=== PATIENT | male | born 1950 | race Caucasian/White ===

== ENCOUNTER → 2018-04-15 | Outpatient (CLI) | payer OTHER ==
[~2018-04-15] MED LIST: ATOR40TA78 PO; GABA800T2 PO; IBUP200C8 PO; MELO15TA24 PO; OXYC10TA6 PO; OXYC1TAB7 PO; PARO30TA3 PO; PARO40TA3 PO; PRAV40TA2 PO; TAMS0.4C2 PO
== END ==
LOC: STAR 08:31
PROVIDERS: ATTEND Surgery
DX: Z02.9 Encounter for administrative examinations, unspecified (principal)

== ENCOUNTER 2018-04-22 09:49 | Day surgery (SDC) | payer OTHER ==
[~2018-04-22] VITALS: Ht 177.8 cm; Wt 91.7 kg
[~2018-04-22 09:49] MED LIST changes: +BUPIVACAINE/PF 0.5% ONE; +BUPIVACAINE/PF-EPI 0.5% 1:200K ONE
[2018-04-22] MEDS ORDERED: LACTATED RINGERS 1,000 ML IV SCH (10:06)
[2018-04-22 10:38] VITALS: BP 128/87
[2018-04-22] MEDS ORDERED: MIDAZOLAM 1 MG/ML, 2ML ONE (11:58)
[2018-04-22] MEDS ORDERED: FENTANYL PF 100 MCG/2ML ONE ×2 (11:58→12:16)
[2018-04-22] MEDS ORDERED: DEXAMETHASONE 4 MG/ML, 5ML ONE (12:05)
[2018-04-22] MEDS ORDERED: PROPOFOL 10 MG/ML, 20ML ONE (12:05)
[2018-04-22] MEDS ORDERED: ONDANSETRON 2MG/ML, 2ML ONE (12:05)
[2018-04-22] MEDS ORDERED: KETOROLAC 30 MG/1 ML ONE (12:05)
[2018-04-22] MEDS ORDERED: SUCCINYLCHOLINE 20 MG/ML, 10ML ONE (12:05)
[2018-04-22] MEDS ORDERED: PHENYLEPHRINE 10 MG/ML ONE (12:05)
[2018-04-22] MEDS ORDERED: FENTANYL PF 100 MCG/2ML IV PRN (13:00)
[2018-04-22] MEDS ORDERED: LABETALOL 5MG/ML, 20ML IV PRN (13:00)
[2018-04-22] MEDS ORDERED: OXYcodone 5 MG/5 ML ORAL.SOL UDC PO PRN (13:00)
[2018-04-22] MEDS ORDERED: HALOPERIDOL 5 MG/ML IV PRN (13:00)
[2018-04-22] MEDS ORDERED: ACETAMINOPHEN 325 MG TABLET PO PRN (13:00)
[2018-04-22] MEDS ORDERED: MEPERIDINE/PF 25MG/0.5ML IVPush PRN (13:00)
[2018-04-22] MEDS ORDERED: PROMETHAZINE 25 MG/ML, 1ML IV PRN (13:00)
[2018-04-22] MEDS ORDERED: hydrALAzine 20 MG/ML, 1ML IV PRN (13:00)
[2018-04-22] MEDS ORDERED: ALBUTEROL SULFATE 2.5 MG/3 ML NPPB PRN (13:00)
[2018-04-22] MEDS ORDERED: LORazepam 2 MG/ML, 1ML IVPush PRN (13:00)
[2018-04-22] MEDS ORDERED: HYDROmorphone 1 MG/ML, 1ML IV PRN (13:00)
== END 2018-04-22 15:15 | disposition home or self-care (01) ==
LOC: OUT 09:49
PROVIDERS: ATTEND Surgery
DX: K64.4 Residual hemorrhoidal skin tags (principal); F32.9 Major depressive disorder, single episode, unspecified; E78.5 Hyperlipidemia, unspecified; Z88.0 Allergy status to penicillin
CPT/HCPCS: 46220; 88304; J0330; J1100; J1885; J2250; J2370; J2405; J2704; J3010; J3490; J7120